=== PATIENT | female | born 1995 | race Caucasian/White ===

== ENCOUNTER 2021-01-30 10:20 | Observation (INO) | payer OTHER ==
[~2021-01-30] VITALS: Ht 139.7 cm; Wt 73.0 kg
[2021-01-30] MEDS ORDERED: SODIUM CHLORIDE 0.9% 1,000 ML IV ONE (10:45)
[2021-01-30 11:04] LABS: BASOPHILS % 0.6 % (0.0-2.0); HEMATOCRIT. 34.2 % (36.0-48.0); HEMOGLOBIN. 11.8 g/dL (12.0-16.0); LYMPHOCYTES % 21.9 % (20.0-50.0); MEAN CORPUSCULAR HEMOGLOBIN 30.9 pg (28.0-32.0); MEAN CORPUSCULAR VOLUME 89.6 fL (81.0-99.0); MEAN PLATELET VOLUME 8.4 fl (7.4-10.4); MONOCYTES % 5.9 % (2.0-8.0); NEUTROPHILS % 70.6 % (40.0-76.0); PLATELET 210 x1000/uL (130-400); RED BLOOD CELL COUNT 3.81 mill/uL (4.2-5.4); RED CELL DISTRIBUTION WIDTH 14.5 % (11.6-14.6)
[2021-01-30 11:09] LABS: CHLORIDE 109 mEq/L (98-107)
[2021-01-30] MEDS ORDERED: ACETAMINOPHEN 325MG TABLET PO ONE (12:15)
[2021-01-30 12:45] VITALS: BP 95/54
== END 2021-01-30 15:30 | disposition home or self-care (01) ==
LOC: ER 10:20 → 8 EST LDRP 13:38
PROVIDERS: ADMIT Obstetrics & Gynecology; ATTEND Obstetrics & Gynecology
DX: O26.893 Other specified pregnancy related conditions, third trimester (principal); R07.89 Other chest pain; Z3A.30 30 weeks gestation of pregnancy
CPT/HCPCS: 36415; 59025; 80053; 84484; 85025; 93005; 96360; 99284; G0378; J7030

== ENCOUNTER 2021-03-07 16:05 | Emergency (ER) | payer MEDICAID ==
[~2021-03-07] VITALS: Ht 139.7 cm; Wt 77.0 kg
[2021-03-07 20:53] LABS: BASOPHILS % 0.5 % (0.0-2.0); EOSINOPHILS % 0.4 % (0.0-5.0); HEMATOCRIT. 38.1 % (36.0-48.0); HEMOGLOBIN. 13.1 g/dL (12.0-16.0); LYMPHOCYTES % 27.7 % (20.0-50.0); MEAN CORPUSCULAR HEMOGLOBIN 31.2 pg (28.0-32.0); MEAN CORPUSCULAR VOLUME 90.7 fL (81.0-99.0); MEAN PLATELET VOLUME 9.4 fl (7.4-10.4); MONOCYTES % 4.3 % (2.0-8.0); NEUTROPHILS % 67.1 % (40.0-76.0); PARTIAL THROMBOPLASTIN TIME 26.2 sec (23.4-31.0); PLATELET 276 x1000/uL (130-400); PROTHROMBIN TIME 10.3 sec (9.6-11.0); RED CELL DISTRIBUTION WIDTH 13.6 % (11.6-14.6)
[2021-03-07 20:54] LABS: CHLORIDE 108 mEq/L (98-107)
[2021-03-07 23:48] LABS: CLARITY URINE CLEAR (CLEAR); COLOR URINE YELLOW (YELLOW); KETONES URINE 4+ (NEGATIVE); LEUKOCYTE ESTERASE URINE NEGATIVE (NEGATIVE); NITRITE URINE NEGATIVE (NEGATIVE); OCCULT BLOOD URINE NEGATIVE (NEGATIVE); PROTEIN URINE TRACE (NEGATIVE); SPECIFIC GRAVITY URINE 1.019 (1.005-1.030)
[2021-03-08] MEDS ORDERED: SODIUM CHLORIDE 0.9% 1,000 ML IV ONE (00:45)
[2021-03-08] MEDS ORDERED: ACETAMINOPHEN 325MG TABLET PO ONE (02:45)
[2021-03-08 03:02] VITALS: BP 121/72
== END 2021-03-08 03:11 | disposition home or self-care (01) ==
LOC: ER 16:05
DX: O26.893 Other specified pregnancy related conditions, third trimester (principal); R07.89 Other chest pain; R10.84 Generalized abdominal pain; R51.9 Headache, unspecified; M79.89 Other specified soft tissue disorders; O30.003 Twin pregnancy, unspecified number of placenta and unspecified number of amniotic sacs, third trimester; Z3A.35 35 weeks gestation of pregnancy
CPT/HCPCS: 36415; 76805; 76810; 76817; 78580; 80053; 81003; 83690; 83880; 84484; 85025; 85379; 85610; 85730; 93005; 93971; 99285; A9540; J7030

== ENCOUNTER 2024-12-24 15:18 | Emergency (ER) | payer MEDICAID ==
[~2024-12-24] VITALS: Ht 157.5 cm; Wt 62.0 kg
[2024-12-24 15:23] VITALS: O2SAT 100
[2024-12-24 18:10] LABS: BASOPHILS % 0.6 % (0.0-2.0); EOSINOPHILS % 1.3 % (0.0-5.0); HEMATOCRIT. 39.7 % (36.0-48.0); HEMOGLOBIN. 13.2 g/dL (12.0-16.0); MEAN CORPUSCULAR HEMOGLOBIN 29.3 pg (28.0-32.0); MEAN CORPUSCULAR HGB CONC 33.2 g/dL (31.0-37.0); MEAN CORPUSCULAR VOLUME 88.3 fL (81.0-99.0); MEAN PLATELET VOLUME 9.3 fl (7.4-10.4); NEUTROPHILS % 66.1 % (40.0-76.0); PLATELET 272 x1000/uL (130-400); RED CELL DISTRIBUTION WIDTH 13.1 % (11.6-14.6); WHITE BLOOD COUNT 7.5 x1000/uL (4.5-11.0)
[2024-12-24 18:20] LABS: CARBON DIOXIDE 29 mEq/L (21-32); CHLORIDE 105 mEq/L (98-107); POTASSIUM 3.9 mEq/L (3.5-5.1); SODIUM 139 mEq/L (136-145)
[2024-12-24 18:21] LABS: CALCIUM 9.3 mg/dL (8.7-10.4)
[2024-12-24 18:23] LABS: HCG SCREEN NEGATIVE
[2024-12-24] MEDS: ACETAMINOPHEN 325MG TABLET PO ONE (18:24)
[2024-12-24 18:25] LABS: CREATININE 0.7 mg/dL (0.6-1.0)
[2024-12-24 18:26] LABS: GLUCOSE 93 mg/dL (70-105); UREA NITROGEN BLOOD 10 mg/dL (9-23)
[2024-12-24 18:31] LABS: TROPONIN I HIGH SENSITIVITY < 4 ng/L (3.0-34)
[2024-12-24 19:04] VITALS: BP 116/74; PULSE 87; RESP 18; TEMP 36.9; O2SAT 99
== END 2024-12-24 19:05 | disposition home or self-care (01) ==
LOC: ER 15:18
DX: R07.89 Other chest pain (principal); R06.02 Shortness of breath; Z98.890 Other specified postprocedural states
CPT/HCPCS: 36415; 71045; 80048; 84484; 84703; 85025; 85379; 93005; 99284

== ENCOUNTER 2025-04-19 08:34 | Emergency (ER) | payer MEDICAID ==
[~2025-04-19] VITALS: Ht 157.5 cm; Wt 66.0 kg
[2025-04-19 08:42] VITALS: O2SAT 99
[2025-04-19 09:23] LABS: BASOPHILS % 0.8 % (0.0-2.0); EOSINOPHILS % 1.1 % (0.0-5.0); HEMATOCRIT. 37.6 % (36.0-48.0); HEMOGLOBIN. 12.6 g/dL (12.0-16.0); LYMPHOCYTES % 29.5 % (20.0-50.0); MEAN PLATELET VOLUME 9.5 fl (7.4-10.4); MONOCYTES % 3.7 % (2.0-8.0); NEUTROPHILS % 64.9 % (40.0-76.0); PLATELET 242 x1000/uL (130-400); RED BLOOD CELL COUNT 4.21 mill/uL (4.2-5.4); RED CELL DISTRIBUTION WIDTH 13.2 % (11.6-14.6)
[2025-04-19 09:36] LABS: HCG SCREEN NEGATIVE
[2025-04-19 09:46] LABS: CREATININE 0.7 mg/dL (0.6-1.0); UREA NITROGEN BLOOD 10 mg/dL (9-23)
[2025-04-19 09:47] LABS: TROPONIN I HIGH SENSITIVITY < 4 ng/L (3.0-34)
[2025-04-19 10:19] VITALS: BP 0/76; PULSE 71; RESP 18; TEMP 36.7; O2SAT 100
== END 2025-04-19 10:20 | disposition home or self-care (01) ==
LOC: ER 08:44
DX: R55 Syncope and collapse (principal); Z98.890 Other specified postprocedural states
CPT/HCPCS: 36415; 71045; 80048; 81025; 84484; 84703; 85025; 93005; 99285